=== PATIENT | female | born 1985 | race Caucasian/White ===

== ENCOUNTER 2021-04-27 10:21 | Emergency (ER) | payer MEDICAID ==
[~2021-04-27] VITALS: Ht 170.2 cm; Wt 62.7 kg
[2021-04-27 10:33] VITALS: BP 121/88
[2021-04-27] MEDS ORDERED: HYDR-3972 PO ×2 (13:13→13:18)
== END 2021-04-27 18:05 | disposition home or self-care (01) ==
LOC: ER 10:22
DX: S90.31XA Contusion of right foot, initial encounter (principal); M79.671 Pain in right foot; Z79.899 Other long term (current) drug therapy; W19.XXXA Unspecified fall, initial encounter; Y93.89 Activity, other specified; Y92.89 Other specified places as the place of occurrence of the external cause; Y99.8 Other external cause status
CPT/HCPCS: 73630; 99283